=== PATIENT | male | born 1955 | race Caucasian/White ===

== ENCOUNTER 2019-06-21 14:22 | Emergency (ER) | payer OTHER ==
[2019-06-21 14:29] VITALS: BP 109/65; PULSE 74; TEMP 97.9; BMI 28.2
[2019-06-21] MEDS ORDERED: FLUORESCEIN NA 1 EA STRIP ONE (15:07)
[2019-06-21] MEDS ORDERED: TETRACAINE 0.5% OPHTH SOLN 2 ML BOTTLE ONE (15:07)
--- NOTE | 2019-06-21 15:16 | PDOC ---
History of Present Illness - General Chief Complaint: Eye Problem Stated Complaint: EYE PROBLEM Time Seen by Provider: 06/21/19 14:57 History Source: Patient Exam Limitations: No Limitations - History of Present Illness Initial Comments: 06/21/19 15:13 HISTORY OF PRESENT ILLNESS: 64-year-old male denies medical history presents emergency department for evaluation of left eye redness for 4 days. Denies any trauma reports when he woke up he had some redness in his eye. He denies any pain or loss of vision. He denies visual difficulties. Patient denies trauma. Patient reports increased heavy lifting the day prior to noticing the hemorrhage. He denies coughing, sneezing, vomiting. No recent travel or sick contacts. PAST MEDICAL HISTORY: Denies past medical history SURGICAL HISTORY: Denies ALLERGIES: No known drug allergies REVIEW OF SYSTEMS General/Constitutional: Denies fever or chills. Denies weakness, weight change. HEENT: See HPI Cardiovascular: Denies chest pain or shortness of breath. Respiratory: Denies cough, wheezing, or hemoptysis. Gastrointestinal: Denies nausea, vomiting, diarrhea or constipation. Denies rectal bleeding. Genitourinary: Denies dysuria, frequency, or change in urination. Musculoskeletal: Denies joint or muscle swelling or pain. Denies neck or back pain. Skin and breasts: Denies rash or easy bruising. Neurologic: Denies headache, vertigo, loss of consciousness, or loss of sensation. Psychiatric: Denies depression or anxiety. Endocrine: Denies increased thirst. Denies abnormal weight change. Hematologic/Lymphatic: Denies anemia, easy bleeding, or history of blood clots. Allergic/Immunologic: Denies hives or skin allergy. Denies latex allergy. PHYSICAL EXAM General Appearance: Well-appearing, appropriately dressed. No apparent distress , no intoxication. HEENT: EOMI, PERRLA, normal ENT inspection, normal voice, TMs normal, pharynx normal. No conjunctival pallor. No photophobia. Left eye subconjunctival hemorrhage present bleeding noted from the 3:00 to 11:00 positions. Hemorrhage is darkest red at this 5:00 to 7:00 positions. 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 Fully oriented, alert. Appropriate mood/affect. Motor strength 5/5. No appreciable EOM palsy, facial droop or sensory deficit. 06/21/19 15:16 Past History - Past Medical History Allergies/Adverse Reactions: Allergies Allergy/AdvReac Type Severity Reaction Status Date / Time almond oil Allergy Mild Swelling Verified 06/21/19 14:29 apple [Apple] Allergy Mild Swelling Verified 06/21/19 14:29 yanes flavor Allergy Mild Swelling Verified 06/21/19 14:29 Home Medications: Ambulatory Orders Pantoprazole Sodium [Protonix -] 20 mg PO DAILY #0 tablet.ec 07/29/12 Asthma: No Cardiac Disorders: No COPD: No Diabetes: No HTN: No Hypercholesterolemia: Yes - Psycho Social/Smoking Cessation Hx Smoking Status: No Smoking History: Never smoked Have you smoked in the past 12 months: No Number of Cigarettes Smoked Daily: 0 Hx Alcohol Use: Yes Drug/Substance Use Hx: Yes Substance Use Type: Alcohol Hx Substance Use Treatment: No *Physical Exam - Vital Signs Last Vital Signs Temp Pulse Resp BP Pulse Ox 97.9 F 74 18 109/65 99 06/21/19 14:26 06/21/19 14:26 06/21/19 14:26 06/21/19 14:26 06/21/19 14:26 Medical Decision Making - Medical Decision Making 06/21/19 15:11 A/P: 64-year-old male with left subconjunctival hemorrhage for 4 days EYE EXAMINATION: Visual acuity: 20/20 in the left eye, 20/20 in the right eye, near, uncorrected The lid and lashes are normal. Extraocular movements are intact. The conjunctiva is clear without erythema, injection, or discharge The corneal surface is normal post tetracaine and fluorescein. There is no corneal abrasion or foreign body. There is no abnormal fluorescein uptake. The pupils are equal, round and reactive to light. The fundus shows normal vessels and normal discs. Discharge home to follow-up with ophthalmology as needed. 06/21/19 15:13 Discharge - Discharge Information Problems reviewed: Yes Clinical Impression/Diagnosis: Subconjunctival hemorrhage of left eye Condition: Stable Disposition: HOME - Admission No - Follow up/Referral Referrals: Vinayak Bolden MD [Staff Physician] - - Patient Discharge Instructions Additional Instructions: There is nothing to do for your injury today. You have been given a referral for [employer] grade teacher. If symptoms do not improve call to schedule an appointment. An 6th grade teacher is a medical doctor who specializes in eyes not the tu you go to to get glasses. Return to the emergency department for any new or worsening symptoms. Thank you very much for choosing us to provide your emergent healthcare needs. - Post Discharge Activity
== END 2019-06-21 15:18 | disposition home or self-care (01) ==
LOC: JERFT 14:22
PROC: 4A07X0Z Measurement of Visual Acuity, External Approach (ICD-10-PCS; principal; 2019-06-21)
DX: H11.32 Conjunctival hemorrhage, left eye (principal); E78.00 Pure hypercholesterolemia, unspecified
CPT/HCPCS: 99173; 99283-25

== ENCOUNTER 2022-03-16 12:04 | Emergency (ER) | payer OTHER ==
[2022-03-16 12:14] VITALS: BP 136/81; PULSE 76; RESP 18; TEMP 98.1; BMI 27.6
[2022-03-16 15:06] LABS: INR 1.03 (0.83-1.09); PROTHROMBIN TIME (PATIENT) 11.8 SEC (9.7-13.0)
[2022-03-16 15:08] LABS: ACTIVATED PTT 30.7 SECONDS (25.2-36.5)
[2022-03-16 15:12] LABS: BASO % 0.5 % (0-2.0); EOS % 1.2 % (0-4.5); HEMATOCRIT 43.3 % (35.4-49); HEMOGLOBIN 14.4 GM/dL (11.7-16.9); LYMPH % 23.4 % (8-40); MCH 31.1 pg (25.7-33.7); MCHC 33.2 g/dl (32.0-35.9); MEAN CELL VOLUME 93.4 fl (80-96); MEAN PLT VOLUME 8.4 fl (7.5-11.1); MONO % 7.6 % (3.8-10.2); NEUT % 67.3 % (42.8-82.8); PLATELET COUNT 163 10^3/uL (134-434); RBC 4.63 M/mm3 (4.00-5.60); RDW 13.7 % (11.9-15.9)
[2022-03-16 15:38] LABS: ALBUMIN 4.1 g/dl (3.4-5.0); BLOOD UREA NITROGEN 16.5 mg/dL (7-18); CALCIUM 9.2 mg/dL (8.5-10.1)
[2022-03-16 15:41] LABS: CREATININE 1.2 mg/dL (0.55-1.3)
[2022-03-16 15:43] LABS: BILIRUBIN,TOTAL 0.6 mg/dL (0.2-1); TOT PROT 7.2 g/dl (6.4-8.2)
== END 2022-03-16 18:55 | disposition home or self-care (01) ==
LOC: JER 12:04
DX: R07.9 Chest pain, unspecified (principal)
CPT/HCPCS: 36415; 71046-TC-FY; 80053; 84484; 85025; 85610; 85730; 93005; 93010; 99284-25

== ENCOUNTER 2023-09-25 14:36 | Emergency (ER) | payer OTHER ==
[2023-09-25 14:51] VITALS: BP 126/78; PULSE 69; RESP 18; TEMP 98; BMI 27.1
[2023-09-25] MEDS ORDERED: ACETAMINOPHEN 325 MG TABLET (FP) ONE (19:34)
[2023-09-25] MEDS: ACETAMINOPHEN 325 MG TABLET (FP) PO ONE (19:38)
== END 2023-09-25 20:35 | disposition home or self-care (01) ==
LOC: JER 14:36
DX: M79.604 Pain in right leg (principal)
CPT/HCPCS: 93971-TC; 99284-25

== ENCOUNTER 2024-10-29 15:04 | Emergency (ER) | payer OTHER ==
[2024-10-29 15:11] VITALS: BP 128/73; PULSE 98; RESP 18; TEMP 98.8; BMI 26.6
[2024-10-29] MEDS ORDERED: DIPHTH,PERTUSS(ACELL),TET 0.5 ML DISP.SYRIN IM ONE (16:07)
[2024-10-29] MEDS: DIPHTH,PERTUSS(ACELL),TET 0.5 ML DISP.SYRIN IM ONE (16:14)
== END 2024-10-29 16:15 | disposition home or self-care (01) ==
LOC: JER 15:04 → JERFT 15:04
PROC: 3E0234Z Introduction of Serum, Toxoid and Vaccine into Muscle, Percutaneous Approach (ICD-10-PCS; principal; 2024-10-29)
DX: S61.211A Laceration without foreign body of left index finger without damage to nail, initial encounter (principal); Z23 Encounter for immunization; W27.2XXA Contact with scissors, initial encounter
CPT/HCPCS: 90471; 90715; 99284-25